=== PATIENT | female | born 1995 | race Caucasian/White ===

== ENCOUNTER 2017-03-16 03:10 | Emergency (ER) | payer OTHER ==
[~2017-03-16] VITALS: Ht 152.4 cm; Wt 46.7 kg
[~2017-03-16 03:10] MED LIST: PRON INH
[2017-03-16 03:16] VITALS: BP 108/71
--- NOTE | 2017-03-16 03:26 | NUR ---
EKG done in triage, shown to tavia Koo to send pt out to lobby to wait
--- NOTE | 2017-03-16 04:10 | NUR ---
21 Y/O F W/C/O WATERY DIARRHEA AND ABD PAIN X 1 WK. PT DENIES ANY N/V, OR PAIN AT THE MOMENT. DANNIELLE MINA MADE AWARE.
--- NOTE | 2017-03-16 04:12 | NUR ---
PT TAKEN TO BED 8
--- NOTE | 2017-03-16 04:56 | NUR ---
Dr. Valente evaluating patient at bedside.
--- NOTE | 2017-03-16 05:21 | NUR ---
X-Ray at bedside.
[2017-03-16] MEDS ORDERED: NACL 0.9% 1,000 ML IV ONE (05:35)
[2017-03-16 05:41] LABS: MEAN CORPUSCULAR HGB CONC 32 g/dL (33-37); RED BLOOD CELL COUNT(AUTO) 4.47 MIL/uL (4.20-5.40)
--- NOTE | 2017-03-16 05:41 | NUR ---
PT RESTING IN BED, VSS, AWATING FOR RESULTS.
[2017-03-16 05:44] LABS: HEMOGLOBIN 11.6 g/dL (12.0-16.0); MEAN CORPUSCULAR HEMOGLOBIN 26 pg (27-31); MEAN CORPUSCULAR VOLUME 81 fL (80-94); PLATELET COUNT (AUTO) 190 K/uL (140-450); RED CELL DISTRIBUTION WIDTH 13.7 % (11.6-13.7); WHITE BLOOD COUNT (AUTO) 8.1 K/uL (4.5-11.0)
[2017-03-16 06:02] LABS: ALBUMIN 4.3 g/dL (3.4-5.0); ANION GAP 11.1 (8-16); CARBON DIOXIDE 27.5 mmol/L (21-32); CREATININE 0.6 mg/dL (0.6-1.3); POTASSIUM 3.6 mmol/L (3.5-5.1); TOTAL BILIRUBIN 0.2 mg/dL (0.0-1.0)
[2017-03-16 06:07] LABS: EOSINOPHILS % (MANUAL) 1 % (0-4); LYMPHOCYTES % (MANUAL) 30 % (20-46); MONOCYTES % (MANUAL) 4 % (5-12)
--- NOTE | 2017-03-16 06:40 | NUR ---
Patient discharged with v/s stable. Written and verbal after care instructions given and explained. Patient verbalized understanding. Ambulatory with steady gait. All questions addressed prior to discharge. Advised to follow up with PMD THIS WK OR RETURN TO ER IF CONDITION WORSENS.
[2017-03-16 06:42] VITALS: BP 102/74
--- NOTE | 2017-03-16 07:19 | NUR ---
Jered varner in ED - 03/16/17 at 0719 by TARUN Pt report given to GREGG HERNANDEZ. Transfer of care at this time.
== END 2017-03-16 06:40 | disposition home or self-care (01) ==
LOC: MED 03:10
DX: R19.7 Diarrhea, unspecified (principal); R10.9 Unspecified abdominal pain; R11.2 Nausea with vomiting, unspecified; R07.89 Other chest pain; J45.909 Unspecified asthma, uncomplicated; Z79.899 Other long term (current) drug therapy
CPT/HCPCS: 36415; 71010; 80053; 83690; 85025; 85379; 96360; 99285; J7030; Q0092

== ENCOUNTER 2017-09-22 19:17 | Emergency (ER) | payer OTHER ==
[~2017-09-22] VITALS: Ht 154.9 cm; Wt 44.0 kg
[2017-09-22 19:29] VITALS: BP 98/52
[2017-09-22 19:34] VITALS: BP 98/52
--- NOTE | 2017-09-22 19:36 | NUR ---
TO LOBBY, A/W BED, AMB, STABLE, ERMD NOTED
--- NOTE | 2017-09-22 20:18 | NUR ---
PATIENT AMBULATED TO ER BED 12
--- NOTE | 2017-09-22 20:20 | NUR ---
PATIENT PRESENTS TO ED WITH ABDOMINAL PAIN X 2 MONTHS NON RADIATING. PT DENIES N/V/D; SKIN IS PINK/WARM/DRY; AAOX4 WITH EVEN AND STEADY GAIT; LUNGS CLEAR BL; HR EVEN AND REGULAR; PT DENIES ANY FEVER, CP, SOB, OR COUGH AT THIS TIME; PATIENT STATES PAIN OF 8/10 AT THIS TIME; VSS; PATIENT POSITIONED FOR COMFORT; HOB ELEVATED; BEDRAILS UP X1; BED DOWN. ER MD MADE AWARE OF PT STATUS.
[2017-09-22] MEDS ORDERED: KETOROLAC 30 MG/ML VIAL IM ONE (20:55)
[2017-09-22 22:08] LABS: BASOPHILS # (AUTO) 0.4 K/uL (0.00-0.22); EOSINOPHILS # (AUTO) 0.9 K/uL (0-0.4); HEMATOCRIT 32.3 % (36-48); HEMOGLOBIN 10.2 g/dL (12.0-16.0); LYMPHOCYTES # (AUTO) 2.6 K/uL (2.5-16.5); MEAN CORPUSCULAR HEMOGLOBIN 25 pg (27-31); MEAN CORPUSCULAR HGB CONC 32 g/dL (33-37); MEAN CORPUSCULAR VOLUME 78.7 fL (80-94); MONOCYTES # (AUTO) 0.8 K/uL (0.8-1.0); NEUTROPHILS # (AUTO) 3.1 K/uL (1.8-7.7); PLATELET COUNT (AUTO) 323 K/uL (140-450); RED BLOOD CELL COUNT(AUTO) 4.11 MIL/uL (4.20-5.40); RED CELL DISTRIBUTION WIDTH 12.8 % (11.6-13.7); WHITE BLOOD COUNT (AUTO) 7.8 K/uL (4.5-11.0)
[2017-09-22 22:13] LABS: CARBON DIOXIDE 26.5 mmol/L (21-32); CREATININE 0.7 mg/dL (0.6-1.3); POTASSIUM 3.5 mmol/L (3.5-5.1); TOTAL BILIRUBIN 0.1 mg/dL (0.0-1.0)
--- NOTE | 2017-09-22 22:15 | NUR ---
PATIENT TO CT
--- NOTE | 2017-09-22 22:29 | NUR ---
PATIENT BACK FROM CT
--- NOTE | 2017-09-22 23:15 | NUR ---
Patient discharged with v/s stable. Written and verbal after care instructions given and explained.Patient alert, oriented and verbalized understanding of instructions. Ambulatory with steady gait. All questions addressed prior to discharge. ID band removed. Patient advised to follow up with PMD. Rx of FLAGYL, BENTYL given. Patient educated on indication of medication including possible reaction and side effects. Opportunity to ask questions provided and answered.
== END 2017-09-22 23:15 | disposition home or self-care (01) ==
LOC: MED 19:17
DX: K52.9 Noninfective gastroenteritis and colitis, unspecified (principal); J45.909 Unspecified asthma, uncomplicated; Z79.899 Other long term (current) drug therapy
CPT/HCPCS: 36415; 74176; 80053; 81002; 81025; 83690; 85025; 90715; 96372; 99285; J1885

== ENCOUNTER 2018-11-26 07:03 | Emergency (ER) | payer OTHER ==
[2018-11-26] MEDS ORDERED: KETOROLAC 60 MG/2 ML VIAL IM ONE (07:55)
--- NOTE | 2018-11-26 08:44 | NUR ---
FOR TRIAGE SEE PAPER CHART
== END 2018-11-26 08:15 | disposition home or self-care (01) ==
LOC: MED 07:03
DX: G44.209 Tension-type headache, unspecified, not intractable (principal); J45.909 Unspecified asthma, uncomplicated; Z79.899 Other long term (current) drug therapy
CPT/HCPCS: 99282; J1885

== ENCOUNTER 2019-12-11 09:01 | Emergency (ER) | payer OTHER ==
[~2019-12-11] VITALS: Ht 154.9 cm; Wt 50.3 kg
[2019-12-11 09:08] VITALS: BP 109/66
[2019-12-11] MEDS ORDERED: IBUPROFEN 600 MG TAB PO ONE (09:10)
[2019-12-11 09:50] VITALS: BP 112/67
== END 2019-12-11 09:51 | disposition home or self-care (01) ==
LOC: MED 09:01
DX: S39.012A Strain of muscle, fascia and tendon of lower back, initial encounter (principal); J45.909 Unspecified asthma, uncomplicated; Z88.6 Allergy status to analgesic agent; Z79.899 Other long term (current) drug therapy; V49.9XXA Car occupant (driver) (passenger) injured in unspecified traffic accident, initial encounter; Y93.89 Activity, other specified; Y92.89 Other specified places as the place of occurrence of the external cause; Y99.8 Other external cause status
CPT/HCPCS: 72110; 81025; 99283

== ENCOUNTER 2020-02-21 10:39 | Emergency (ER) | payer OTHER ==
[~2020-02-21] VITALS: Ht 157.5 cm; Wt 50.3 kg
[2020-02-21 10:46] VITALS: BP 102/63
[2020-02-21 11:17] VITALS: BP 112/65
== END 2020-02-21 11:17 | disposition home or self-care (01) ==
LOC: MED 10:39
DX: S40.862A Insect bite (nonvenomous) of left upper arm, initial encounter (principal); J45.909 Unspecified asthma, uncomplicated; Z88.0 Allergy status to penicillin; Z79.899 Other long term (current) drug therapy; W57.XXXA Bitten or stung by nonvenomous insect and other nonvenomous arthropods, initial encounter; Y93.89 Activity, other specified; Y92.89 Other specified places as the place of occurrence of the external cause; Y99.8 Other external cause status
CPT/HCPCS: 99283

== ENCOUNTER 2020-03-25 19:35 | Emergency (ER) | payer OTHER ==
[~2020-03-25] VITALS: Ht 157.5 cm; Wt 50.3 kg
[2020-03-25 19:38] VITALS: BP 106/62
--- NOTE | 2020-03-25 19:43 | NUR ---
To ED bed 04.
--- NOTE | 2020-03-25 19:56 | NUR ---
PT STATES SHE RENTED A ROOM AT [facility] [employer] TODAY AND WAS BITTEN ON THE L MID ARM BY MULTPLE LITTLE BLACK SPIDERS. 3 BUMPS AND REDNESS NOTED TO AREA, SKIN INTACT, NO DRAINAGE. PT C/O BURING 6/10 TO ARM AND NUMBNESS AND TINGLING TO L ARM. ALSO STATES VOMITED X 2 AND STILL FEELS NAUSEATED. AFEBRILE. NO DIZZINESS OR HEADACHE. BED IN LOWEST POSITION AND SIDERAIL UP X 1. ALLERGY - PCN HX - ASTHMA
[2020-03-25 20:08] VITALS: BP 106/62
--- NOTE | 2020-03-25 20:09 | NUR ---
Patient discharged with v/s stable. Written and verbal after care instructions given and explained. Patient alert, oriented and verbalized understanding of instructions. Ambulatory with steady gait. All questions addressed prior to discharge. ID band removed. Patient advised to follow up with PMD. Rx of PREDNISONE, BENADRYL, AND TRIAMCINOLINE CREAM given. Patient educated on indication of medication including possible reaction and side effects. Opportunity to ask questions provided and answered.
== END 2020-03-25 20:09 | disposition home or self-care (01) ==
LOC: MED 19:35
DX: M79.632 Pain in left forearm (principal); W57.XXXA Bitten or stung by nonvenomous insect and other nonvenomous arthropods, initial encounter; Y93.89 Activity, other specified; Y92.89 Other specified places as the place of occurrence of the external cause; Y99.8 Other external cause status; J45.909 Unspecified asthma, uncomplicated; Z88.0 Allergy status to penicillin; Z79.899 Other long term (current) drug therapy
CPT/HCPCS: 99283

== ENCOUNTER 2022-01-25 23:33 | Emergency (ER) | payer OTHER ==
[~2022-01-25] VITALS: Ht 154.9 cm; Wt 60.1 kg
[2022-01-25 23:40] VITALS: BP 105/68
--- NOTE | 2022-01-25 23:43 | NUR ---
TO LOBBY A/W BED AMBULATORY
--- NOTE | 2022-01-26 00:26 | NUR ---
CHRISTYD EXAMINING PT IN CHAIR
[2022-01-26] MEDS ORDERED: ALBU0.0912 INH (00:33)
[2022-01-26] MEDS ORDERED: NAPR-54 PO (00:33)
--- NOTE | 2022-01-26 00:35 | NUR ---
Patient discharged with v/s stable. Written and verbal after care instructions given and explained. Patient alert, oriented and verbalized understanding of instructions. Ambulatory with steady gait. All questions addressed prior to discharge. ID band removed. Patient advised to follow up with PMD. Rx of ALBUTEROL AND NAPROSYN given. Patient educated on indication of medication including possible reaction and side effects. Opportunity to ask questions provided and answered.
== END 2022-01-26 00:37 | disposition home or self-care (01) ==
LOC: MED 23:33
DX: J02.9 Acute pharyngitis, unspecified (principal); J45.909 Unspecified asthma, uncomplicated; Z88.0 Allergy status to penicillin; Z79.899 Other long term (current) drug therapy
CPT/HCPCS: 99283